=== PATIENT | female | born 1960 | race Caucasian/White ===

== ENCOUNTER 2017-08-30 21:46 | Observation (INO) | payer OTHER ==
[2017-08-31 01:31] LABS: ADD MAN DIFF? NO
[2017-08-31 01:32] LABS: WHITE BLOOD COUNT 10.4 10^3/ul (4.8-10.8)
[2017-08-31 01:32] LABS: BASOPHIL # 0.1 10^3/ul (0.0-0.1); BASOPHILS % 0.5 % (0.0-2.0); EOSINOPHILS # 0.1 10^3/ul (0.0-0.5); EOSINOPHILS % 0.6 % (0.0-7.0); HEMATOCRIT 36.3 % (37.0-47.0); HEMOGLOBIN 12.5 g/dl (12.0-16.0); LYMPHOCYTES # 3.8 10^3/ul (0.8-2.9); LYMPHOCYTES % 36.5 % (15.0-51.0); MEAN CORPUSCULAR HEMOGLOBIN 32.8 pg (29.0-33.0); MEAN CORPUSCULAR HGB CONC 34.4 g/dl (32.0-37.0); MEAN CORPUSCULAR VOLUME 95.3 fl (82.0-101.0); MEAN PLATELET VOLUME 9.8 fl (7.4-10.4); MONOCYTE # 0.7 10^3/ul (0.3-0.9); MONOCYTES % 6.5 % (0.0-11.0); NEUTROPHIL # 5.8 10^3/ul (1.6-7.5); NEUTROPHILS % 55.7 % (39.0-77.0); PLATELET COUNT 248 10^3/UL (140-415); RED BLOOD COUNT 3.81 10^6/ul (4.20-5.40); RED CELL DISTRIBUTION WIDTH 12.6 % (11.5-14.5)
[2017-08-31 01:46] LABS: ANION GAP 14 (8-16); BLOOD UREA NITROGEN 16 mg/dl (7-20); CALCIUM 9.3 mg/dl (8.4-10.2); CARBON DIOXIDE 22 mmol/L (21-31); CHLORIDE 111 mmol/L (97-110); CREATININE 0.66 mg/dl (0.44-1.00); GLUCOSE 126 mg/dl (70-220); POTASSIUM 4.2 mmol/L (3.5-5.1); SODIUM 143 mmol/L (135-144)
[2017-08-31 01:53] LABS: INR 0.95; PROTIME 12.8 Sec (11.9-14.9)
[2017-08-31 01:54] LABS: PARTIAL THROMBOPLASTIN TIME 24.2 Sec (25.0-35.0)
[2017-08-31] MEDS: ASPIRIN 325 MG TAB PO (05:12)
[2017-08-31] MEDS ORDERED: DOCUSATE SODIUM 100 MG CAP PO (06:00)
[2017-08-31] MEDS ORDERED: NACL 0.9% 3 ML SYG IV (06:00)
[2017-08-31] MEDS ORDERED: ONDANSETRON 4 MG INJ IV (06:00)
[2017-08-31] MEDS ORDERED: BISACODYL (EC) 5 MG TAB PO (06:00)
[2017-08-31] MEDS: SOD CHLORIDE 0.9% 1,000 ML IV ×2 (07:01→20:00)
[2017-08-31 08:03] LABS: HEMOGLOBIN A1C 5.8 % (0-5.9)
[2017-08-31 09:03] LABS: CHOL/HDL RATIO 4.1 RATIO; HDL CHOLESTEROL 44 mg/dl (37-92); LDL CHOLESTEROL,CALCULATED 120 mg/dl; TRIGLYCERIDES 85 mg/dl (0-149)
[2017-08-31 09:03] LABS: CHOLESTEROL 181 mg/dl (100-200)
[2017-08-31] MEDS ORDERED: METOPROLOL 25 MG TAB PO (10:30)
[2017-08-31 10:34] LABS: FREE T4 (FREE THYROXINE) 0.98 ng/dl (0.64-1.79)
[2017-08-31] MEDS ORDERED: hydrALAzine 20 MG INJ IV (11:00)
[2017-08-31] MEDS: ASPIRIN 81 MG TAB PO (11:02)
[2017-08-31] MEDS: ENOXAPARIN 40 MG/0.4 ML SYG SC (11:04)
[2017-08-31 12:30] LABS: AMPHETAMINE/METHAMPHETAMINE Negative (NEGATIVE); BARBITURATES Negative (NEGATIVE); BENZODIAZEPINES Negative (NEGATIVE); CANNABINOIDS Negative (NEGATIVE); COCAINE Negative (NEGATIVE); OPIATES Negative (NEGATIVE)
[2017-08-31] MEDS: ATORVASTATIN 40 MG TAB PO (21:14)
[2017-08-31] MEDS: ACETAMINOPHEN 325 MG TAB PO (23:41)
[2017-09-01] MEDS: SOD CHLORIDE 0.9% 1,000 ML IV ×3 (04:45→20:34)
[2017-09-01 06:30] LABS: WHITE BLOOD COUNT 8.3 10^3/ul (4.8-10.8)
[2017-09-01 06:30] LABS: ADD MAN DIFF? NO; BASOPHIL # 0.1 10^3/ul (0.0-0.1); BASOPHILS % 0.6 % (0.0-2.0); EOSINOPHILS # 0.3 10^3/ul (0.0-0.5); EOSINOPHILS % 3.3 % (0.0-7.0); HEMOGLOBIN 12.4 g/dl (12.0-16.0); LYMPHOCYTES # 4.4 10^3/ul (0.8-2.9); LYMPHOCYTES % 53.6 % (15.0-51.0); MEAN CORPUSCULAR HEMOGLOBIN 32.2 pg (29.0-33.0); MEAN CORPUSCULAR HGB CONC 33.5 g/dl (32.0-37.0); MEAN CORPUSCULAR VOLUME 96.1 fl (82.0-101.0); MEAN PLATELET VOLUME 10.2 fl (7.4-10.4); MONOCYTE # 0.6 10^3/ul (0.3-0.9); MONOCYTES % 7.4 % (0.0-11.0); NEUTROPHIL # 2.9 10^3/ul (1.6-7.5); NEUTROPHILS % 34.9 % (39.0-77.0); PLATELET COUNT 223 10^3/UL (140-415); RED BLOOD COUNT 3.85 10^6/ul (4.20-5.40); RED CELL DISTRIBUTION WIDTH 12.6 % (11.5-14.5)
[2017-09-01 06:56] LABS: ALANINE AMINOTRANSFERASE 30 IU/L (13-69); ALBUMIN 3.9 g/dl (3.3-4.9); ALBUMIN/GLOBULIN RATIO 1.18; ALKALINE PHOSPHATASE 78 IU/L (42-121); ANION GAP 13 (8-16); ASPARTATE AMINO TRANSFERASE 26 IU/L (15-46); BILIRUBIN,INDIRECT 0.6 mg/dl (0-1.1); BILIRUBIN,TOTAL 0.6 mg/dl (0.2-1.3); BLOOD UREA NITROGEN 15 mg/dl (7-20); CARBON DIOXIDE 21 mmol/L (21-31); CHLORIDE 113 mmol/L (97-110); CREATININE 0.67 mg/dl (0.44-1.00); GLUCOSE 97 mg/dl (70-220); POTASSIUM 4.1 mmol/L (3.5-5.1); SODIUM 143 mmol/L (135-144); TOTAL PROTEIN 7.2 g/dl (6.1-8.1)
[2017-09-01 06:59] LABS: CHOL/HDL RATIO 4.5 RATIO; CHOLESTEROL 172 mg/dl (100-200); HDL CHOLESTEROL 38 mg/dl (37-92); LDL CHOLESTEROL,CALCULATED 91 mg/dl; TRIGLYCERIDES 213 mg/dl (0-149)
[2017-09-01 06:59] LABS: PHOSPHORUS 4.3 mg/dl (2.5-4.9)
[2017-09-01 07:53] LABS: BAND NEUTROPHILS #M 0.1 10^3/ul (0.0-0.6); BAND NEUTROPHILS % (M) 2 % (0-4); EOSINOPHILS % (M) 3 % (0-7); LYMPHOCYTES #M 3.9 10^3/ul (0.8-2.9); LYMPHOCYTES % (M) 48 % (15-51); MONOCYTE #M 0.3 10^3/ul (0.3-0.9); MONOCYTES % (M) 4 % (0-11); REACTIVE LYMPHOCYTES% (M) 1 % (0-0); SEG NEUT #M 3.5 10^3/ul (1.6-7.5); SEGMENTED NEUTROPHILS (M) % 42 % (39-77); SMUDGE%M 16 % (0-0)
[2017-09-01] MEDS: ASPIRIN 81 MG TAB PO (08:15)
[2017-09-01] MEDS: ENOXAPARIN 40 MG/0.4 ML SYG SC (08:18)
[2017-09-01] MEDS: METOPROLOL 25 MG TAB PO ×2 (10:50→20:39)
[2017-09-01] MEDS: ACETAMINOPHEN 325 MG TAB PO (20:37)
[2017-09-01] MEDS: ATORVASTATIN 40 MG TAB PO (20:39)
[2017-09-02] MEDS: SOD CHLORIDE 0.9% 1,000 ML IV (00:36)
[2017-09-02] MEDS: ASPIRIN 81 MG TAB PO (08:25)
[2017-09-02] MEDS: METOPROLOL 25 MG TAB PO (08:26)
[2017-09-02] MEDS: ENOXAPARIN 40 MG/0.4 ML SYG SC (08:28)
[2017-09-02 09:04] LABS: ADD MAN DIFF? NO
[2017-09-02 09:11] LABS: BASOPHILS % 0.5 % (0.0-2.0); EOSINOPHILS # 0.2 10^3/ul (0.0-0.5); EOSINOPHILS % 2.5 % (0.0-7.0); HEMOGLOBIN 12.4 g/dl (12.0-16.0); LYMPHOCYTES # 3.6 10^3/ul (0.8-2.9); LYMPHOCYTES % 46.7 % (15.0-51.0); MEAN CORPUSCULAR HEMOGLOBIN 32.5 pg (29.0-33.0); MEAN CORPUSCULAR HGB CONC 33.5 g/dl (32.0-37.0); MEAN CORPUSCULAR VOLUME 96.9 fl (82.0-101.0); MEAN PLATELET VOLUME 10.1 fl (7.4-10.4); MONOCYTE # 0.6 10^3/ul (0.3-0.9); MONOCYTES % 7.3 % (0.0-11.0); NEUTROPHIL # 3.3 10^3/ul (1.6-7.5); NEUTROPHILS % 42.9 % (39.0-77.0); PLATELET COUNT 244 10^3/UL (140-415); RED BLOOD COUNT 3.82 10^6/ul (4.20-5.40); RED CELL DISTRIBUTION WIDTH 12.4 % (11.5-14.5)
[2017-09-02 09:11] LABS: WHITE BLOOD COUNT 7.6 10^3/ul (4.8-10.8)
[2017-09-02 09:34] LABS: ANION GAP 15 (8-16); BLOOD UREA NITROGEN 16 mg/dl (7-20); CARBON DIOXIDE 22 mmol/L (21-31); CHLORIDE 111 mmol/L (97-110); CREATININE 0.66 mg/dl (0.44-1.00); GLUCOSE 101 mg/dl (70-220); POTASSIUM 4.1 mmol/L (3.5-5.1); SODIUM 144 mmol/L (135-144)
[2017-09-02 09:35] LABS: PHOSPHORUS 4.4 mg/dl (2.5-4.9)
== END 2017-09-02 14:05 | disposition home or self-care (01) ==
LOC: E/R 21:46 → MS4 08-31 04:39
DX: R53.1 Weakness (principal); R47.02 Dysphasia; I10 Essential (primary) hypertension; E66.9 Obesity, unspecified; Z68.37 Body mass index [BMI] 37.0-37.9, adult; Z79.82 Long term (current) use of aspirin
CPT/HCPCS: 36415; 70450; 70544; 70548; 70551; 71045; 80048; 80053; 80061; 80307; 83036; 83735; 84100; 84439; 84443; 85025; 85610; 85730; 92506; 92610; 93306; 97161; 99285-25; G0378

== ENCOUNTER 2017-09-05 15:28 | Outpatient (CLI) | payer OTHER | END 2017-09-05 16:53 | disposition home or self-care (01) | LOC: DCC 15:28 | DX: R53.1 Weakness (principal); R51 Headache; I10 Essential (primary) hypertension; E66.9 Obesity, unspecified; R94.6 Abnormal results of thyroid function studies | CPT/HCPCS: G0463 ==

== ENCOUNTER 2018-08-06 17:39 | Emergency (ER) | payer OTHER | END 2018-08-06 20:21 | disposition home or self-care (01) | LOC: FTE 20:21 | DX: R51 Headache (principal); I10 Essential (primary) hypertension; Z79.82 Long term (current) use of aspirin | CPT/HCPCS: 99283; Z7502 ==